=== PATIENT | female | born 1970 | race Caucasian/White ===

== ENCOUNTER 2021-09-13 16:50 | Observation (INO) | payer OTHER, SELFPAY ==
--- NOTE | ~2021-09-13 | CT_ITS ---
EXAMINATION: CTA chest PE abdomen pel DATE: 09/13/2021 21:09 INDICATION: Chest pain. Abdominal pain. Shortness of breath. TECHNIQUE: Computed tomography angiography (CTA) of the chest was performed with 100 mL Omnipaque-350 intravenous contrast timed to evaluate the pulmonary arteries. Coronal maximum intensity projection 3D-reconstructions were created by the technologist. Computed tomography (CT) of the abdomen and pelv is was performed with intravenous contrast. Automated exposure control and iterative reconstruction t echnique were employed. The dose-length product was 2207.69 mGy-cm. COMPARISON: None. FINDINGS: CTA chest: There is mild emphysema. There is mild atelectasis in the inferior lungs. There is a small left hemothorax. The heart size is normal. No pericardial effusion. There is no pulmonary embolus. T here are displaced fractures of left 9th and 10th ribs. There is mild chronic anterior wedging of mul tiple lower thoracic vertebral bodies. There is moderate thoracic spondylosis. CT abdomen and pelvis: The liver and spleen are normal. There are changes of cholecystectomy. The ambrosio creas, adrenal glands, and kidneys are normal. There is diverticulosis of the colon without evidence of diverticulitis. There are no dilated loops of bowel. The appendix is normal. There are no patholog ically enlarged lymph nodes. There is no free intraperitoneal fluid. There is severe lumbar spondylos is. IMPRESSION: 1. Acute displaced fractures of left 9th and 10th ribs. 2. Small left hemothorax. 3. Mild emphysema. Reviewed, dictated and finalized at location A. STER RECOVERY SPECIALIST
--- NOTE | ~2021-09-13 | XR_ITS ---
EXAMINATION: XR chest 1V portable DATE: 09/14/2021 08:18 INDICATION: Left-sided hemothorax TECHNIQUE: frontal view of the chest was obtained. COMPARISON: Chest radiograph and CT dated 09/13/2021 FINDINGS: Gradient of hazy airspace opacity in the left mid to lower lung zone densest at the left costophrenic angle consistent with a small posterior layering pleural effusion. No new airspace opacities, pulmon gurpreet edema, pneumothorax or right-sided pleural effusion. This appears more prominent than on the prio r radiograph but similar in extent when compared with the intervening chest CT. The cardiomediastinal silhouette is normal. The previous noted lateral left ninth and 10th rib fractures are not clearly v isualized in the current study. IMPRESSION: 1. No significant interval change since prior chest CT in a small left posteriorly layering pleural e ffusion. Reviewed, dictated and finalized at location A. ATE ADVISOR IMPRESSION: 1. No significant interval change since prior chest CT in a small left posterio rly layering pleural effusion.
--- NOTE | ~2021-09-13 | XR_ITS ---
EXAMINATION: XR chest 2V DATE: 09/13/2021 19:18 INDICATION: Shortness of breath. Left rib pain. TECHNIQUE: Frontal and lateral views of the chest were obtained. COMPARISON: None. FINDINGS: There are airspace opacities at the lung bases. There is a small left pleural effusion. No pneumothorax. The heart size is normal. There is a fracture of left ninth rib. There is mild anterior wedging of multiple lower thoracic vertebral bodies, likely chronic. IMPRESSION: 1. Fracture of left ninth rib. 2. Airspace opacities at the lung bases, likely atelectasis. 3. Small left pleural effusion. Reviewed, dictated and finalized at location A. CH LANGUAGE PATHOLOGIST
[2021-09-13 16:54] VITALS: BP 123/91; PULSE 95; RESP 14; TEMP 36.7; O2SAT 95
--- NOTE | 2021-09-13 19:01 | ECG_ITS ---
Measurements Intervals [place] Rate: 84 P: 62 MD: 128 QRS: 21 QRSD: 80 T: 66 QT: 360 QTc: 426 Interpretive Statements SINUS RHYTHM EARLY PRECORDIAL R/S TRANSITION BORDERLINE T WAVE ABNORMALITY- INF/LAT LEADS BORDERLINE ECG Electronically Signed On 09-13-2021 20:05:20 FENCE SETTER by Alexx Reyes D.O.
[2021-09-13 19:08] VITALS: BP 122/82; PULSE 84; RESP 20; O2SAT 94
[2021-09-13 19:24] LABS: Basophils Percent Auto 0.6 % (0.2-1.2); Eosinophils Absolute Auto 0.2 K/mm3 (0-0.3); Eosinophils Percent Auto 3.2 % (0-4.4); Hematocrit 42.4 % (37.0-47.0); Hemoglobin 13.5 g/dL (12.0-15.0); Immature Granulocyte Absolute 0.02 K/mm3 (0.00-0.031); Immature Granulocyte Percent A 0.3 % (0-0.5); Lymphocytes Absolute Auto 2.59 K/mm3 (0.9-3.2); Lymphocytes Percent Auto 37.5 % (18.3-44.2); Mean Corpuscular HGB Conc 31.8 g/dl (32-36); Mean Corpuscular Volume 100.5 fl (80-100); Mean Platelet Volume 10.4 fl (7.4-10.4); Monocytes Absolute Auto 0.4 K/mm3 (0.1-0.6); Monocytes Percent Auto 5.2 % (2.6-8.5); Neutrophils Absolute Auto 3.7 K/mm3 (1.3-6.7); Neutrophils Percent Auto 53.2 % (45.5-73.1); Platelet Count Result 226 k/mm3 (150-375); Red Blood Count 4.22 M/mm3 (4.2-5.4); Red Cell Distribution Width 13.7 % (11.5-14.5); White Blood Count 6.9 K/mm3 (4.5-10.0)
[2021-09-13 19:32] LABS: Alanine Aminotransferase 15 U/L (4-35); Albumin Level 4.2 g/dL (3.5-5.1); Alkaline Phosphatase 111 U/L (38-126); Anion Gap 8 mmol/L (8-16); Aspartate Amino Transferase 24 U/L (14-36); Bilirubin,Total 0.5 mg/dL (0.2-1.3); Blood Urea Nitrogen 10 mg/dL (7-17); Carbon Dioxide 29 mmol/L (22-30); Chloride 102 mmol/L (98-107); Estimated CRCL calculation 81 ml/min; Estimated Glomerular Filt Rate > 60; Glucose 123 mg/dL (65-110); Sodium 139 mmol/L (137-145)
--- NOTE | 2021-09-13 20:07 | ED.GENADULT ---
HPI - General Adult General Chief complaint: Abdominal Pain Stated complaint: abd pain/diff breathing Time Seen by Provider: 09/13/21 18:51 Source: patient and RN notes reviewed History of Present Illness HPI narrative: Patient is a 51 y/o female complaining of left side abdominal pain starting 2 days ago. She describes her pain as sharp and rates it as 9/10. She feels like there is something moving inside. She is concerned about possible ruptured spleen. She also has some chest pain and SOB. Related Data Allergies Allergy/AdvReac Type Severity Reaction Status Date / Time codeine AdvReac Abdominal Verified 09/13/21 22:07 Pain Sulfa (Sulfonamide AdvReac Abdominal Verified 09/13/21 22:06 Antibiotics) Pain Review of Systems Constitutional: Constitutional: Denies chills, Denies fever(s), Denies headache(s) and Denies weakness Eyes: Eyes: Denies blurry vision ENT: Denies headache(s) and Denies neck pain Cardiovascular: Cardiovascular: Reports chest pain and Reports dyspnea Respiratory: Respiratory: Denies cough and Reports dyspnea Gastrointestinal: Gastrointestinal: Reports abdominal pain, Denies diarrhea, Denies nausea and Denies vomiting Genitourinary: Genitourinary: Denies hematuria and Denies dysuria Musculoskeletal: Musculoskeletal: Denies back pain and Denies neck pain Neurologic: Denies headache(s) and Denies weakness Exam Const: General: no acute distress and well developed Orientation/consciousness: oriented to person, oriented to place, oriented to time and patient oriented x3 HENMT: Head: normocephalic Ears: external ears normal General nose exam: Normal external nose present Eyes: General: appearance normal, both eyes and all related structures Conjunctivae: conjunctivae normal Neck: Neck: normal visual inspection and full ROM Chest: Chest palpation & inspection: normal inspection of the chest and no tenderness Resp: Effort & Inspection: normal respiratory effort Auscultation: clear to auscultation bilaterally Cardio: Rate: regular rate Rhythm: regular rhythm GI: GI Palp: No abdominal tenderness and Yes Soft to palpation Skin: General skin exam: normal color and turgor normal Neuro: General: oriented to person, oriented to place, oriented to time and patient oriented x3 Cognition (Neuro): normal cognition Extrem: General: normal to inspection, full ROM and no pedal edema Psych: Appearance: grossly normal Mental Status: mental status grossly normal Affect: normal affect Course Consultations Consultation #1: Discussed with Dr. Osullivan, who agrees to admit. Date: 09/13/21 Time: 22:53 Vital Signs Vital signs: Vital Signs Temperature 36.7 C 09/13/21 16:54 Pulse Rate 95 09/13/21 16:54 Respiratory Rate 14 09/13/21 16:54 Blood Pressure 123/91 H 09/13/21 16:54 Pulse Oximetry 95 09/13/21 16:54 Temperature 36.7 C 09/13/21 16:54 Pulse Rate 82 09/13/21 23:32 Respiratory Rate 18 09/13/21 23:32 Blood Pressure 100/64 09/13/21 23:32 Pulse Oximetry 95 09/13/21 23:32 Medical Decision Making Vital Signs Vital Signs: Vital Signs Temperature 36.7 C 09/13/21 16:54 Pulse Rate 95 09/13/21 16:54 Respiratory Rate 14 09/13/21 16:54 Blood Pressure 123/91 H 09/13/21 16:54 Pulse Oximetry 95 09/13/21 16:54 Temperature 36.7 C 09/13/21 16:54 Pulse Rate 82 09/13/21 23:32 Respiratory Rate 18 09/13/21 23:32 Blood Pressure 100/64 09/13/21 23:32 Pulse Oximetry 95 09/13/21 23:32 Lab Data Result diagrams: 09/13/21 19:06 09/13/21 19:06 Labs: Lab Results 09/13/21 09/13/21 09/13/21 Range/Units 19:06 19:06 20:06 WBC 6.9 (4.5-10.0) K/mm3 RBC 4.22 (4.2-5.4) M/mm3 Hgb 13.5 (12.0-15.0) g/dL Hct 42.4 (37.0-47.0) % MCV 100.5 H (80-100) fl MCH 32.0 (26-34) pg MCHC 31.8 L (32-36) g/dl RDW 13.7 (11.5-14.5) % Plt Count 226 (150-375) k/mm3 MPV 10.4 (
[2021-09-13 20:28] LABS: D Dimer 3.25 ug/mL (<0.48)
[2021-09-13 20:33] LABS: Troponin I < 0.012 ng/mL (0.000-0.034)
[2021-09-13 22:29] LABS: Troponin I < 0.012 ng/mL (0.000-0.034)
[2021-09-13] MEDS: KETOROLAC 30 MG/ML VIAL (*BKC) IV PUSH (23:15)
[2021-09-13 23:32] VITALS: BP 100/64; PULSE 82; RESP 18; O2SAT 95
[2021-09-14] VITALS (7 sets, daily range): BP systolic 107–129; BP diastolic 48–84; PULSE 68–94; RESP 16–20; TEMP 36.2–36.6; O2SAT 91–97
[2021-09-14 01:45] LABS: SARS-CoV-2 RNA PCR Negative
--- NOTE | 2021-09-14 03:17 | ADMGEN ---
This patient, Rin Dickerson, was admitted to [facility]. Patient oriented to hospital policies and general routines including ID bracelet, bed and alarms, visiting hours, pain management, procedures, bathroom and other care routines, personal items, smoking policy, room service/diet, and visiting hours. Information on how to activate the Rapid Response Team has been discussed. Patient is encouraged to report perceived risks to care and to ask questions if they do not understand what they are told or what they should do.
[2021-09-14 04:10] LABS: Troponin I < 0.012 ng/mL (0.000-0.034)
--- NOTE | 2021-09-14 11:12 | PM.IMHP ---
H&P: HPI History of Present Illness Date/Time: 09/14/21 11:12 Chief Complaint: Left rib pain, shortness of breath Narrative: This is a 51-year-old obese female with a history of ashtma, hypertension, and tobacco abuse, who presented to the ER with complaints of left lateral chest/rib pain and shortness of breath. She reports having intermittent episodes of different sharp pains in her left lateral chest/rib area, epigastric area, and LUQ over the past 5 months. These are all short episodes and she has been seen at [facility] and her PCP for these episodes, but no significant findings. She reports that late last year, they did see a left-sided rib fracture in April, but that has since resolved. Now about 1 week ago, she had reached for something up high in her house and felt a popping sensation in her left lateral chest and lower rib area. She had associated pain as well. She reports that two nights ago she slept on her left side and upon waking, she noticed a new onset of shortness of breath. She called her PCP and they scheduled her for an appointment yesterday. She called them yesterday prior to arrival and mentioned the shortness of breath, and they suggested she be evaluated in the ER instead. In the ER, she had a chest x-ray that showed a fracture of left ninth rib, airspace opacities at the lung bases, likely atelectasis, and small left pleural effusion. CTA chest/abdomen/pelvis that showed acute displaced fractures of left 9th and 10th ribs, small left hemothorax, and mild emphysema. Our service was consulted for the findings of the left small hemothorax. She was admitted for observation and was initially on 2L NC O2 early this morning. She is now seen in the pre-op area as an overflow patient. She reports feeling great today with only very minimal pain with certain movements in her left lower lateral rib area. She reports her shortness of breath actually had improved prior to even being seen in the ER. She denies any shortness of breath this morning. She denies any other pain or discomfort. She is now taken off oxygen and is stable on room air per nursing. No other complaints at this time. She is also a daily smoker. She denies having a history of spontaneous pneumothorax in the past. Review of Systems Review of Systems: All systems reviewed & are unremarkable except as noted in HPI and below Constitutional: Constitutional: Reports as per HPI, Denies chills, Denies fatigue and Denies fever(s) Eyes: Eyes: Reports no additional eye complaints ENT: Reports system reviewed and no additional complaints, except as documented and Reports Normal hearing present Cardiovascular: Cardiovascular: Reports no additional cardiovascular complaints, Denies chest pain and Denies leg edema Respiratory: Respiratory: Reports no additional respiratory complaints, Denies cough and Reports dyspnea Gastrointestinal: Gastrointestinal: Reports as per HPI, Reports no additional gastrointestinal complaints, Denies abdominal pain, Denies bloating, Denies change in bowel habits, Denies diarrhea, Denies nausea and Denies vomiting Genitourinary: Genitourinary: Denies hematuria and Denies dysuria Musculoskeletal: Musculoskeletal: Denies abnormal gait, Denies deformity, Denies joint swelling, Denies numbness and Denies tingling Integumentary/Breasts: Skin/Breast: Denies wounds and Denies jaundice Neurologic: Reports system reviewed and no additional complaints, except as documented, Denies dizziness, Denies focal weakness, Denies numbness and Denies tingling Psychiatric: Psychiatric: Denies anxiety and Reports other (takes prazosin for PTSD) [facility] Past Medical History Medical History Allergies Asthma Hypertension PTSD (post-traumatic stress disorder) Tobacco abuse disorder Surgical History Surgical History History of cholecystectomy History of shoulder surge
[2021-09-14] MEDS: atenoloL 50 MG TABLET PO (13:56)
[2021-09-14] MEDS: ACETAMINOPHEN 325 MG TABLET 650 MG PO (13:59)
--- NOTE | 2021-09-14 15:40 | PM.DS ---
DS: Admitting Diagnosis Discharge Date 09/14/21 Admitting Diagnosis Left hemothorax Left rib fractures Tobacco abuse Hypertension Asthma Obesity DS: Discharge Diagnosis Discharge Diagnosis (1) Left rib fracture: Qualifiers: Encounter type: initial encounter Fracture type: closed Rib fracture type: multiple ribs Qualified Code(s): S22.42XA - Multiple fractures of ribs, left side, initial encounter for closed fracture Code(s): S22.32XA - Fracture of one rib, left side, initial encounter for closed fracture Status: Acute (2) Hemothorax on left: Code(s): J94.2 - Hemothorax Status: Acute (3) Hypertension: Code(s): I10 - Essential (primary) hypertension Status: Acute (4) Tobacco abuse disorder: Code(s): Z72.0 - Tobacco use Status: Acute (5) Obesity (BMI 30-39.9): Code(s): E66.9 - Obesity, unspecified Status: Acute DS: Summary Hospital Course Reason for hospitalization: This is a 51-year-old obese female with a history of asthma, hypertension, and tobacco abuse, who presented to the ER with complaints of left lateral chest/rib pain and shortness of breath. About 1 week ago, she had reached for something up high in her house and felt a popping sensation in her left lateral chest and lower rib area. She had associated pain as well. She reports that two nights ago she slept on her left side and upon waking, she noticed a new onset of shortness of breath. She came to the ER for evaluation. Chest x-ray showed a fracture of left ninth rib, airspace opacities at the lung bases, likely atelectasis, and small left pleural effusion. CTA chest/abdomen/pelvis that showed acute displaced fractures of left 9th and 10th ribs, small left hemothorax, and mild emphysema. Our service was consulted for the findings of the left small hemothorax. She was admitted for observation. Hospital Course: The patient was admitted and monitored. Repeat chest x-ray this morning was unchanged. Patient is stable on room air. She is only having minimal pain that is controlled with Tylenol. Dr. Osullivan has evaluated her this afternoon and she is stable for discharge. We have recommended she follow-up with her PCP in 2 weeks for repeat imaging and further work-up. The hemothorax is likely a result of the rib fractures, but it is unclear why she continues to have rib fractures without trauma. Will need f/u with PCP for further work-up. Time spent discussing smoking cessation with patient: more than 10 minutes Status at Discharge Functional status at discharge: independent ambulation Overall status at discharge: patient is progressing back to baseline Time Spent with Patient Time attestation: Total time spent providing and/or coordinating discharge services: Time spent: Greater than 30 minutes Exam Resp: Effort & Inspection: normal respiratory effort and no respiratory distress Auscultation: clear to auscultation bilaterally Cardio: Rate: regular rate Rhythm: regular rhythm DS: Data Data Completed and Pending Labs on day of discharge: Labs from last 24 hours 09/14/21 09/13/21 09/13/21 03:35 23:32 21:55 WBC RBC Hgb Hct MCV MCH MCHC RDW Plt Count MPV Immature Gran % (Auto) Neut % (Auto) Lymph % (Auto) [place] % (Auto) Eos % (Auto) Baso % (Auto) Lymph # (Auto) [place] # (Auto) Eos # (Auto) Baso # (Auto) Abs Immat Gran (auto) Absolute Neuts (auto) Absolute Nucleated RBC Nucleated RBC % D-Dimer Sodium Potassium Chloride Carbon Dioxide Anion Gap BUN Creatinine Estim Creat Clear Calc Estimated GFR Glucose Calcium Total Bilirubin AST ALT Alkaline Phosphatase Troponin I < 0.012 < 0.012 Total Protein Albumin SARS-CoV-2 RNA (RT-PCR) Negative 09/13/21 09/13/21 09/13/21 20:06 20:06 19:06 WBC RBC Hgb Hct MCV MCH MCHC
== END 2021-09-14 16:20 | disposition home or self-care (01) ==
LOC: ANHED 23:10 → ANHSUROVER 09-14 02:34
PROVIDERS: Admitting Provider Surgery; Emergency Provider Emergency Medicine; PCP Internal Medicine; Visit Provider Surgery
DX: S27.1XXA Traumatic hemothorax, initial encounter (principal); S22.42XA Multiple fractures of ribs, left side, initial encounter for closed fracture; X58.XXXA Exposure to other specified factors, initial encounter; R06.02 Shortness of breath; I10 Essential (primary) hypertension; J45.909 Unspecified asthma, uncomplicated; F43.10 Post-traumatic stress disorder, unspecified; F17.210 Nicotine dependence, cigarettes, uncomplicated; Z79.51 Long term (current) use of inhaled steroids; E66.9 Obesity, unspecified; Z68.34 Body mass index [BMI] 34.0-34.9, adult; Z20.822 Contact with and (suspected) exposure to COVID-19
CPT/HCPCS: 36415; 71045; 71046; 71275; 74177; 80053; 84484; 85025; 85380; 93005; 96374; 99285; A9270; C9803; G0378; G0379; J1885; Q9967; U0003; U0005

== ENCOUNTER 2021-09-24 02:40 | Inpatient (IN) | payer OTHER, SELFPAY ==
[2021-09-24] VITALS (38 sets, daily range): BP systolic 80–118; BP diastolic 47–106; PULSE 63–86; RESP 12–33; TEMP 36–36.9; O2SAT 88–99; BMI 37.2
--- NOTE | ~2021-09-24 | XR_ITS ---
EXAMINATION: XR chest 2V DATE: 09/24/2021 03:11 INDICATION: Cough and shortness of breath TECHNIQUE: frontal and lateral views of the chest were obtained. COMPARISON: Chest radiograph dated 09/14/2021 FINDINGS: Opacities in the left lower lung zone consistent with small left pleural effusion and associated basi lar atelectasis and/or pneumonia. Mild streaky atelectasis at the right lung base. No pulmonary edema , pneumothorax or right pleural effusion. The cardiomediastinal silhouette is normal. Mild thoracic s pondylosis with chronic mild anterior wedging with couple lower thoracic vertebral bodies. IMPRESSION: 1. Small left pleural effusion with atelectasis and/or pneumonia in the left lower lung zones. Reviewed, dictated and finalized at location A. HER OPERATOR IMPRESSION: 1. Small left pleural effusion with atelectasis and/or pneumonia in the left lo wer lung zones.
--- NOTE | ~2021-09-24 | CT_ITS ---
EXAMINATION: CT chest abdomen pelvis wo con DATE: 09/25/2021 08:05 CORE DRIER INDICATION: Recent hemothorax. Dropped hemoglobin. Shortness of breath. TECHNIQUE: Computed tomography (CT) of the chest, abdomen, and pelvis was performed without intraveno us contrast. The dose-length product was 1889.28 mGy-cm. Automated exposure control and iterative rec onstruction technique were employed. COMPARISON: CT dated 09/13/2021 FINDINGS: CHEST CT: Significant enlargement of large left hemothorax. There is underlying compressive atelectasis. Heart size is normal. There is mediastinal shift to the right. No endobronchial lesions. Displaced left alfie th and 10th rib fractures reidentified. Moderate thoracic and lumbar spondylosis. Mild superior endpl ate compression deformity of L4, likely chronic. ABDOMEN/PELVIS CT: Status post cholecystectomy. The liver, spleen, pancreas, adrenal glands and kidneys are unremarkable . Small fat-containing ventral abdominal wall hernia. No abnormal pelvic masses or fluid collections. Nonobstructive bowel gas pattern. Colonic diverticulosis without diverticulitis. IMPRESSION: 1. Significant enlargement of large left hemothorax. 2: Subacute displaced left ninth and 10th rib fractures. Reviewed, dictated and finalized at location A. DRIER
--- NOTE | 2021-09-24 02:53 | ECG_ITS ---
Measurements Intervals [place] Rate: 71 P: 44 [place]: 123 QRS: 3 QRSD: 86 T: 29 QT: 403 QTc: 440 Interpretive Statements SINUS RHYTHM BASELINE ARTIFACT- I, II, III, AVR, AVF, V2-V6 NORMAL ECG Electronically Signed On 09-24-2021 8:17:21 INFRASTRUCTURE PROJECT MANAGER by Alexx Reyes D.O.
--- NOTE | 2021-09-24 02:59 | ED.SOB ---
HPI - SOB/Dyspnea General Chief Complaint: Shortness of Breath/Dyspnea Stated Complaint: SOB WITH COUGH, N/V/EMESIS Time Seen by Provider: 09/24/21 02:43 History of Present Illness HPI Narrative: Patient is a 51-year-old female who presents to the ER with shortness of breath and weakness. Patient was admitted to the hospital 09/14/2021. She had left-sided rib fractures of 9 and 10 that were displaced. She had a pneumothorax. She was observed by surgery and discharged home. She followed up with her PCP today. Reports that she was leaving his office she felt like she is having some central chest discomfort and some shortness of breath. That is persisted since leaving. She is concerned she is developing infection. She has been having some cough. No wheezing. Denies fevers or chills or sweats. Reports she is feeling fatigued with exertion as well as short of breath. She also reports that she has developed some nausea and vomiting on the way to the ER and received antiemetics by EMS which did help. Denies any new trauma but reports she did have some coughing today that did cause some pain on her left side and in the back of her neck. That pain is improved and she has had some central chest discomfort. Reports she only use her incentive spirometry 1 time today and that it was reaching readings that were typical for her. Related Data Home Medications Medication Instructions Recorded Confirmed albuterol sulfate 2 puff INHALATION PRN PRN 09/14/21 09/24/21 atenolol 50 mg PO DAILY 09/14/21 09/24/21 fluticasone propion-salmeterol 1 inh INHALATION BID PRN 09/14/21 09/24/21 [Valerie Winslowub] montelukast 10 mg PO DAILY PRN 09/14/21 09/24/21 naproxen 500 mg PO PRN 09/14/21 09/24/21 prazosin 1 mg PO HS 09/14/21 09/24/21 venlafaxine 75 mg PO DAILY 09/14/21 09/24/21 venlafaxine 150 mg PO HS 09/14/21 09/24/21 Allergies Allergy/AdvReac Type Severity Reaction Status Date / Time latex AdvReac Mild Rash Verified 09/14/21 05:50 ciprofloxacin [From Cipro] AdvReac Rash Verified 09/24/21 06:29 codeine AdvReac Abdominal Verified 09/13/21 22:07 Pain Sulfa (Sulfonamide AdvReac Abdominal Verified 09/13/21 22:06 Antibiotics) Pain Review of Systems Review of Systems: All systems reviewed & are unremarkable except as noted in HPI and below Constitutional: Constitutional: Denies chills, Reports fatigue, Denies fever(s) and Reports weakness ENT: Denies nasal congestion and Denies sore throat Cardiovascular: Cardiovascular: Reports chest pain, Denies rapid heart rate and Denies radiating jaw, neck or arm pain Respiratory: Respiratory: Reports cough, Reports dyspnea and Denies wheezing Gastrointestinal: Gastrointestinal: Denies abdominal pain, Denies diarrhea, Reports nausea and Reports vomiting Genitourinary: Genitourinary: Denies hematuria, Denies dysuria and Denies flank pain Musculoskeletal: Musculoskeletal: Reports back pain PMFSH Past Medical History Medical History Allergies Asthma Hypertension PTSD (post-traumatic stress disorder) Tobacco abuse disorder Surgical History Surgical History History of cholecystectomy History of shoulder surgery Family History Family History (Updated 09/24/21 @ 06:50 by Ingrid Fermin RN) Father Liver failure Mother Rheumatic fever Social History Social History Smoking packs per day: 0.75 Smoking cigarettes per day: 15.0 Years smoked: 35 Smoking pack-years: 26.25 Smoking status: Current some day smoker Tobacco type: cigarettes Second hand tobacco smoke exposure: No Alcohol intake: current Substance use: never Substance use type: does not use Spiritual care concerns: No Exam Narrative: GENERAL: Well-appearing, obese, and in no acute distress. HEAD: Normocephalic, atraumatic. EYES: PERR
[2021-09-24] MEDS: SODIUM CHLORIDE 0.9% IV 1,000 ML 999 ML IV CONT (03:00)
[2021-09-24 03:24] LABS: Basophils Absolute Auto 0.1 K/mm3 (0.0-0.1); Basophils Percent Auto 0.4 % (0.2-1.2); Eosinophils Absolute Auto 0.1 K/mm3 (0-0.3); Eosinophils Percent Auto 0.5 % (0-4.4); Hematocrit 34.6 % (37.0-47.0); Hemoglobin 11.1 g/dL (12.0-15.0); Immature Granulocyte Absolute 0.07 K/mm3 (0.00-0.031); Immature Granulocyte Percent A 0.6 % (0-0.5); Lymphocytes Percent Auto 16.4 % (18.3-44.2); Mean Corpuscular HGB Conc 32.1 g/dl (32-36); Mean Corpuscular Hemoglobin 32.5 pg (26-34); Mean Corpuscular Volume 101.2 fl (80-100); Mean Platelet Volume 10.2 fl (7.4-10.4); Monocytes Absolute Auto 0.8 K/mm3 (0.1-0.6); Monocytes Percent Auto 6.9 % (2.6-8.5); Neutrophils Absolute Auto 9.2 K/mm3 (1.3-6.7); Neutrophils Percent Auto 75.2 % (45.5-73.1); Platelet Count Result 294 k/mm3 (150-375); Red Blood Count 3.42 M/mm3 (4.2-5.4); Red Cell Distribution Width 14.1 % (11.5-14.5); White Blood Count 12.2 K/mm3 (4.5-10.0)
[2021-09-24 03:48] LABS: INR 1.1; Prothrombin Time 13.4 Seconds (11.1-14.7)
[2021-09-24 03:49] LABS: Partial Thromboplastin Time 29.9 SECONDS (22.3-36.8)
[2021-09-24 03:59] LABS: Alanine Aminotransferase 16 U/L (4-35); Albumin Level 3.8 g/dL (3.5-5.1); Alkaline Phosphatase 102 U/L (38-126); Anion Gap 6 mmol/L (8-16); Aspartate Amino Transferase 41 U/L (14-36); Bilirubin,Total 0.6 mg/dL (0.2-1.3); Blood Urea Nitrogen 14 mg/dL (7-17); Calcium 8.8 mg/dL (8.4-10.2); Carbon Dioxide 28 mmol/L (22-30); Chloride 100 mmol/L (98-107); Estimated CRCL calculation 42 ml/min; Estimated Glomerular Filt Rate 30; Glucose 141 mg/dL (65-110); Lipase 37 U/L (23-300); Potassium 5.2 mmol/L (3.4-5.0); Sodium 134 mmol/L (137-145)
[2021-09-24 04:11] LABS: NT Pro B Type Natriuretic Pept 156 pg/mL (5-100); Troponin I < 0.012 ng/mL (0.000-0.034)
[2021-09-24 04:57] LABS: SARS-CoV-2 RNA PCR Negative
[2021-09-24] MEDS: LACTATED RINGERS 1,000 ML 125 ML IV CONT ×3 (06:02→23:50)
[2021-09-24] MEDS: ONDANSETRON INJ 4 MG/2 ML VIAL IV PUSH ×2 (06:07→23:58)
--- NOTE | 2021-09-24 06:26 | ADMGEN ---
This patient, Rin Dickerson, was admitted to 2 Medical Room 248-01. Patient/family oriented to hospital policies and general routines including ID bracelet, bed and alarms, visiting hours, pain management, procedures, bathroom and other care routines, personal items, smoking policy, room service/diet, and visiting hours. Information on how to activate the Rapid Response Team has been discussed. Patient/Family are encouraged to report perceived risks to care and to ask questions if they do not understand what they are told or what they should do.
[2021-09-24 06:39] LABS: Troponin I < 0.012 ng/mL (0.000-0.034)
[2021-09-24] MEDS: atenoloL 50 MG TABLET PO (09:25)
[2021-09-24] MEDS: LIDOCAINE 5% PATCH 2 PATCH TRANSDERM (09:25)
[2021-09-24] MEDS: MONTELUKAST SODIUM 10 MG TABLET PO (09:25)
[2021-09-24] MEDS: VENLAFAXINE HCL 75 MG TABLET BY MOUTH (09:25)
[2021-09-24] MEDS: NAPROXEN 500 MG TABLET PO ×2 (09:25→20:28)
[2021-09-24 09:30] LABS: Troponin I < 0.012 ng/mL (0.000-0.034)
--- NOTE | 2021-09-24 12:11 | PM.IMHP ---
H&P: HPI History of Present Illness Date/Time: 09/24/21 12:11 ED-HPI Narrative: Patient is a 51-year-old female who presents to the ER with shortness of breath and weakness. Patient was admitted to the hospital 09/14/2021. She had left-sided rib fractures of 9 and 10 that were displaced. She had a pneumothorax. She was observed by surgery and discharged home. She followed up with her PCP today. Reports that she was leaving his office she felt like she is having some central chest discomfort and some shortness of breath. That is persisted since leaving. She is concerned she is developing infection. She has been having some cough. No wheezing. Denies fevers or chills or sweats. Reports she is feeling fatigued with exertion as well as short of breath. She also reports that she has developed some nausea and vomiting on the way to the ER and received antiemetics by EMS which did help. Denies any new trauma but reports she did have some coughing today that did cause some pain on her left side and in the back of her neck. That pain is improved and she has had some central chest discomfort. Reports she only use her incentive spirometry 1 time today and that it was reaching readings that were typical for her. Patient continued to complain of left ribs pain and shortness of breath, applied to Lidoderm patches that has improved some pain, will give the patient DuoNeb, chest x-ray is pending but appears to have pleural effusion on the left side may benefit from thoracentesis will continue to monitor, also risk for infection patient is being treated with ceftriaxone and azithromycin, will have PT OT evaluate the the patient, will keep the patient NPO on Sunday night for possible thoracentesis on Sunday. patient is admitted as observation status. Chief Complaint: shortness of breath Review of Systems Review of Systems: All systems reviewed & are unremarkable except as noted in HPI and below PMFSH Past Medical History Medical History Allergies Asthma Hypertension PTSD (post-traumatic stress disorder) Tobacco abuse disorder Surgical History Surgical History History of cholecystectomy History of shoulder surgery Family History Family History (Updated 09/24/21 @ 06:50 by Ingrid Fermin RN) Father Liver failure Mother Rheumatic fever Social History Social History Smoking packs per day: 0.75 Smoking cigarettes per day: 15.0 Years smoked: 35 Smoking pack-years: 26.25 Smoking status: Current some day smoker Tobacco type: cigarettes Second hand tobacco smoke exposure: No Alcohol intake: current Substance use: never Substance use type: does not use Spiritual care concerns: No Meds Home Medications and Allergies Home Medications Medication Instructions Recorded Confirmed Type albuterol sulfate 2 puff INHALATION PRN PRN 09/14/21 09/24/21 History atenolol 50 mg PO DAILY 09/14/21 09/24/21 History fluticasone propion-salmeterol 1 inh INHALATION BID PRN 09/14/21 09/24/21 History [Wixela Inhub] montelukast 10 mg PO DAILY PRN 09/14/21 09/24/21 History naproxen 500 mg PO PRN 09/14/21 09/24/21 History prazosin 1 mg PO HS 09/14/21 09/24/21 History venlafaxine 75 mg PO DAILY 09/14/21 09/24/21 History venlafaxine 150 mg PO HS 09/14/21 09/24/21 History Allergies Allergy/AdvReac Type Severity Reaction Status Date / Time latex AdvReac Mild Rash Verified 09/14/21 05:50 ciprofloxacin [From Cipro] AdvReac Rash Verified 09/24/21 06:29 codeine AdvReac Abdominal Verified 09/13/21 22:07 Pain Sulfa (Sulfonamide AdvReac Abdominal Verified 09/13/21 22:06 Antibiotics) Pain Vital Signs Vital Signs - 24 hr 09/24/21 02:45 09/24/21 03:00 09/24/21 03:16 Temperature 96.8 F L Pulse Rate 75 74 Respiratory Rate 16 33 H Blood Pres
[2021-09-24] MEDS: IPRATROPIUM BR 0.02% INH SOLN 0.5 MG/2.5 ML VIAL INHALATION ×2 (15:12→20:20)
[2021-09-24] MEDS: ALBUTEROL SULFATE NEB 2.5 MG/0.5 ML INH INHALATION ×2 (15:12→20:20)
[2021-09-24] MEDS: VENLAFAXINE HCL 75 MG TABLET 150 MG PO (20:27)
[2021-09-24] MEDS: PRAZOSIN HCL 1 MG CAPSULE PO (20:27)
[2021-09-25] VITALS (20 sets, daily range): BP systolic 88–123; BP diastolic 37–66; PULSE 65–108; RESP 18–22; TEMP 36.1–36.8; O2SAT 91–93
[2021-09-25] MEDS: ALBUTEROL SULFATE NEB 2.5 MG/0.5 ML INH INHALATION ×3 (00:10→08:33)
[2021-09-25] MEDS: IPRATROPIUM BR 0.02% INH SOLN 0.5 MG/2.5 ML VIAL INHALATION ×3 (00:10→08:33)
[2021-09-25 06:07] LABS: Anion Gap 2 mmol/L (8-16); Blood Urea Nitrogen 18 mg/dL (7-17); Calcium 7.9 mg/dL (8.4-10.2); Carbon Dioxide 32 mmol/L (22-30); Chloride 97 mmol/L (98-107); Estimated CRCL calculation 58 ml/min; Estimated Glomerular Filt Rate 43; Glucose 109 mg/dL (65-110); Potassium 4.3 mmol/L (3.4-5.0); Sodium 131 mmol/L (137-145)
[2021-09-25 06:52] LABS: Hemoglobin 7.3 g/dL (12.0-15.0); Mean Corpuscular HGB Conc 31.7 g/dl (32-36); Mean Corpuscular Hemoglobin 32.3 pg (26-34); Mean Corpuscular Volume 101.8 fl (80-100); Mean Platelet Volume 9.9 fl (7.4-10.4); Platelet Count Result 169 k/mm3 (150-375); Red Blood Count 2.26 M/mm3 (4.2-5.4); White Blood Count 6.1 K/mm3 (4.5-10.0)
[2021-09-25] MEDS: VENLAFAXINE HCL 75 MG TABLET BY MOUTH (08:02)
[2021-09-25] MEDS: LACTATED RINGERS 1,000 ML 125 ML IV CONT (08:03)
--- NOTE | 2021-09-25 09:28 | PM.TDS ---
Transfer Discharge Sum: Prov Provider Date of admission: 09/24/21 07:51 Primary care physician: Rick Segura, Admitting clinician: Vince Heck MD DS: Admitting Diagnosis Discharge Date 09/25/2021 Admitting Diagnosis Shortness of breath DS: Discharge Diagnosis Discharge Diagnosis (1) Pleural effusion: Code(s): J90 - Pleural effusion, not elsewhere classified Status: Acute Assessment and Plan: Patient continued to complain of left ribs pain and shortness of breath, applied to Lidoderm patches that has improved some pain, will give the patient DuoNeb, chest x-ray is pending but appears to have pleural effusion on the left side may benefit from thoracentesis will continue to monitor, also risk for infection patient is being treated with ceftriaxone and azithromycin, will have PT OT evaluate the the patient, will keep the patient NPO on Sunday night for possible thoracentesis on Sunday. (2) Acute kidney injury: Code(s): N17.9 - Acute kidney failure, unspecified Status: Acute Assessment and Plan: patient with acute on chronic kidney disease most likely secondary to poor p.o. intake and dehydration will gently hydrate the patient and monitor (3) Hypoxia: Code(s): R09.02 - Hypoxemia Status: Acute Assessment and Plan: most likely secondary to rib fractures hypoventilation, will give the patient DuoNeb and apply Lidoderm patch, (4) Hypertension: Code(s): I10 - Essential (primary) hypertension Status: Acute Assessment and Plan: will continue home regimen and monitor Transfer Discharge Sum: Med Medications Active and Home Medications: Home Medications albuterol sulfate 2 puff INHALATION PRN PRN 09/14/21 [History Confirmed 09/24/21] atenolol 50 mg PO DAILY 09/14/21 [History Confirmed 09/24/21] fluticasone propion-salmeterol [Wixela Inhub] 1 inh INHALATION BID PRN 09/14/21 [History Confirmed 09/24/21] montelukast 10 mg PO DAILY PRN 09/14/21 [History Confirmed 09/24/21] naproxen 500 mg PO PRN 09/14/21 [History Confirmed 09/24/21] prazosin 1 mg PO HS 09/14/21 [History Confirmed 09/24/21] venlafaxine 75 mg PO DAILY 09/14/21 [History Confirmed 09/24/21] venlafaxine 150 mg PO HS 09/14/21 [History Confirmed 09/24/21] Active Medications Hydrocodone Bitart/Acetaminophen (Hydrocodone/Acetaminophen (*Crx) 5-325 Mg Tablet) 1 tab PO Q4H PRN PRN Reason: Pain Rated 4-6 Albuterol (Albuterol Sulfate (*Sp) Aerosol 1 Puff) 2 puff INHALATION PRN PRN PRN Reason: Shortness Of Breath Or Wheezing Albuterol (Albuterol Sulfate Neb 2.5 Mg/0.5 Ml Inh) 2.5 mg INHALATION Q4HRT [facility] Last Admin: 09/25/21 08:33 Dose: 2.5 mg Documented by: Atenolol (Atenolol 50 Mg Tablet) 50 mg PO DAILY [facility] Last Admin: 09/24/21 09:25 Dose: 50 mg Documented by: Lactated Ringer's (Lr - Lactated Ringers Iv) 1,000 mls @ 125 mls/hr IV CONT .Q8H [facility] Last Admin: 09/25/21 08:03 Dose: 125 mls/hr Documented by: Ceftriaxone Sodium/Dextrose (Rocephin 1 Gm/D5w 50 Ml) 1 gm in 50 mls @ 100 mls/hr IVPB Q24H [facility] Last Infusion: 09/25/21 06:04 Dose: Infused Documented by: Azithromycin (Zithromax) 500 mg in 250 mls @ 250 mls/hr IVPB Q24H [facility] Last Infusion: 09/25/21 06:39 Dose: Infused Documented by: Sodium Chloride (Normal Saline Iv) 250 mls @ 30 mls/hr IV CONT .Q8H20M [facility] Stop: 09/25/21 15:17 Ipratropium [place] (Ipratropium Br 0.02% Inh Soln 0.5 Mg/2.5 Ml Vial) 0.5 mg INHALATION Q4HRT [facility] Last Admin: 09/25/21 08:33 Dose: 0.5 mg Documented by: Lidocaine (Lidocaine 5% Patch) 2 patch TRANSDERM DAILY [facility] Last Admin: 09/25/21 08:03 Dose: Not Given Documented by: Miscellaneous Information (Lidocaine Patches- Site Of Application Needed Please) 1 each XX CLARIFY [facility] Stop: 10/24/21 00:00 Last Admin: 09/25/21 08:00 Dose: Not Given Documented by: Montelukast Sodium (Montelukast Sodium 10 Mg Tablet) 10 mg PO DAILY PRN PRN Reason: allergy symptoms Last Admin: 09/06
[2021-09-25 10:52] LABS: SARS-CoV-2 RNA PCR Negative
== END 2021-09-25 14:35 | disposition short-term general hospital (02) | DRG 143 ==
LOC: ANHED 02:49 → ANH2MED 05:50
PROVIDERS: Admitting Provider Internal Medicine; Emergency Provider Emergency Medicine; PCP Internal Medicine; Visit Provider Family Medicine
DX: J94.2 Hemothorax (principal); J90 Pleural effusion, not elsewhere classified; E86.0 Dehydration; Z20.822 Contact with and (suspected) exposure to COVID-19; F17.210 Nicotine dependence, cigarettes, uncomplicated; J45.909 Unspecified asthma, uncomplicated; I12.9 Hypertensive chronic kidney disease with stage 1 through stage 4 chronic kidney disease, or unspecified chronic kidney disease; N18.9 Chronic kidney disease, unspecified; F43.10 Post-traumatic stress disorder, unspecified; S22.42XD Multiple fractures of ribs, left side, subsequent encounter for fracture with routine healing; X58.XXXD Exposure to other specified factors, subsequent encounter; R09.02 Hypoxemia; N17.9 Acute kidney failure, unspecified; Z79.899 Other long term (current) drug therapy; Z91.09 Other allergy status, other than to drugs and biological substances
CPT/HCPCS: 36415; 36430; 71046; 71250; 74176; 80048; 80053; 83690; 83880; 84484; 85025; 85027; 85610; 85730; 86850; 86900; 86901; 86920; 87040; 93005; 94640; 96361; 96365; 96375; 99285; A9270; C9803; G0379; J0131; J0456; J0696; J2405; J7030; J7120; P9016; U0003; U0005

== ENCOUNTER 2021-12-03 17:41 | Emergency (ER) | payer OTHER, SELFPAY ==
--- NOTE | ~2021-12-03 | XR_ITS ---
EXAM: XR ribs BI 3V w CXR 2V HISTORY: PAIN TO LT SIDE, FALL X 3 WEEKS, PAIN WORSE YESTERDAY COMPARISON: 09/24/2021 FINDINGS: Small left pleural effusion. Normal cardiomediastinal silhouette. Cholecystectomy clips. M ildly displaced fracture of the left sixth posterior lateral and seventh through 11th lateral ribs. IMPRESSION: Multiple mildly displaced left sixth through 11th rib fractures. Reviewed, dictated and finalized at location K.
[2021-12-03 17:45] VITALS: BP 123/54; PULSE 92; RESP 18; TEMP 36.6; O2SAT 93
--- NOTE | 2021-12-03 18:34 | PC.NURSE ---
Refusing to have xrays done from lobby. Wants to wait until she sees a doctor because she feels she needs a CT scan.
[2021-12-03 19:27] VITALS: BP 132/76; PULSE 90; RESP 18; O2SAT 95
--- NOTE | 2021-12-03 19:39 | ED.FALL ---
HPI - Fall General Chief Complaint: Fall Stated Complaint: rib pain Time Seen by Provider: 12/03/21 19:23 History of Present Illness HPI Narrative: pt comes in with left rib pain says 3 weeks ago fell going down her stairs fell onto left chest h/o surgery dr soha delcid after fluid left lung last year and rib fx. says pain and went to [facility] yesterday told xray neg. pt says popping sensation today no other new f/uri/cp/neuro chagnes or new injury Related Data Home Medications Medication Instructions Recorded Confirmed albuterol sulfate 2 puff INHALATION PRN PRN 09/14/21 09/24/21 atenolol 50 mg PO DAILY 09/14/21 09/24/21 fluticasone propion-salmeterol 1 inh INHALATION BID PRN 09/14/21 09/24/21 [Wixela Inhub] montelukast 10 mg PO DAILY PRN 09/14/21 09/24/21 naproxen 500 mg PO PRN 09/14/21 09/24/21 prazosin 1 mg PO HS 09/14/21 09/24/21 venlafaxine 75 mg PO DAILY 09/14/21 09/24/21 venlafaxine 150 mg PO HS 09/14/21 09/24/21 Allergies Allergy/AdvReac Type Severity Reaction Status Date / Time latex AdvReac Mild Rash Verified 09/14/21 05:50 ciprofloxacin [From Cipro] AdvReac Rash Verified 09/24/21 06:29 codeine AdvReac Abdominal Verified 09/13/21 22:07 Pain Sulfa (Sulfonamide AdvReac Abdominal Verified 09/13/21 22:06 Antibiotics) Pain Review of Systems Review of Systems: CONSTITUTIONAL: Denies fever, chills, or sweats. EYES: Denies visual changes, redness, or discharge. ENT: Denies rhinorrhea, congestion, sore throat, or otalgia. CARDIOVASCULAR: Denies chest pain, palpitations, or edema. RESPIRATORY: Denies cough or dyspnea. GASTROINTESTINAL: Denies abdominal pain, nausea, vomiting, or diarrhea. GENITOURINARY: Denies dysuria or hematuria. SKIN: Denies rash or itching. MUSCULOSKELETAL: Denies back pain, joint pain, or myalgia. has left rib pain/popping NEUROLOGIC: Denies headache, numbness, or weakness. PSYCHIATRIC: Denies anxiety or depression. [facility] Past Medical History Medical History Allergies Asthma Hypertension PTSD (post-traumatic stress disorder) Tobacco abuse disorder Surgical History Surgical History History of cholecystectomy History of shoulder surgery Family History Family History (Updated 09/24/21 @ 06:50 by Ingrid Fermin RN) Father Liver failure Mother Rheumatic fever Social History Social History Smoking packs per day: 0.75 Smoking cigarettes per day: 15.0 Years smoked: 35 Smoking pack-years: 26.25 Smoking status: Current some day smoker Tobacco type: cigarettes Second hand tobacco smoke exposure: No Alcohol intake: current Substance use: never Substance use type: does not use Spiritual care concerns: No Exam Narrative: APPEARANCE: Well appearing, no pain in distress, well-nourished. Head normocephalic atraumtaic. EYES: PERRLA/EOMI, conjunctivae very clear. NOSE: Normal no drainage EARS:TMS clear Justo Merchant, with good light reflex. THROAT: Pharynx clear, no exudate. NECK: Supple. No adenopathy, no masses. RESPIRATORY: Airway patent, repsirations nonlabored. Clear to auscultation bilaterally, no rales, rhonchi, wheezing. tend left ribs no crepitus or bruising CARDIOVASCULAR: Regular rate and rhythm without murmurs rubs or gallops. ABDOMINAL: Soft, nontender, nondistended, no hepatosplenomegally MUSCULOSKELETAl: Moves all extremities. Strenght/ROM intact, No edema, No calf tenderness. NEURO: Alert. Cranial nerves II through XII intact. Good gait. Good coordination SKIN:: Warm, dry. Normal Color PSYCHIATRIC: Normal affect/mood, normal interaction with parents. Course Course Emergency Course: pt says trying to get f/u again with dr soha simmons with plan for norco-has taken fine in past and outpt f/u has family that lives wiht her and colace to soften stools and home pt also states had 3 r
[2021-12-03 20:01] VITALS: BP 146/87; PULSE 84; RESP 16; O2SAT 97
[2021-12-03] MEDS: HYDROcodone/acetaminophen (*CRX) 5-325 MG TABLET 1 TAB PO (20:02)
[2021-12-03 20:12] VITALS: BP 144/78; PULSE 82; RESP 18; O2SAT 100
== END 2021-12-03 20:15 | disposition home or self-care (01) ==
PROVIDERS: Emergency Provider Emergency Medicine; PCP Internal Medicine
DX: S22.42XA Multiple fractures of ribs, left side, initial encounter for closed fracture (principal); J45.909 Unspecified asthma, uncomplicated; I10 Essential (primary) hypertension; F43.10 Post-traumatic stress disorder, unspecified; F17.210 Nicotine dependence, cigarettes, uncomplicated; W10.9XXA Fall (on) (from) unspecified stairs and steps, initial encounter
CPT/HCPCS: 71046; 71110; 99283; A9270

== ENCOUNTER 2023-08-26 17:56 | Emergency (ER) | payer OTHER, SELFPAY ==
--- NOTE | ~2023-08-26 | XR_ITS ---
EXAMINATION: XR ribs LT 2V w CXR 2V Exam Date/Time: 08/26/2023 19:10 PEER EDUCATOR HISTORY: left rib pain after fall. hx of rib fx x 2 yrs Comparison: 12/03/2021. RESULT: Lines, tubes, and devices: Cholecystectomy clips. Lungs and pleura: Chronic left pleural blunting, otherwise clear. Cardiothymic silhouette: Stable. Other: No acute osseous or upper abdominal finding. Nonunited chronic left lateral sixth rib fractur e. Healed right lateral 7th through 11th left rib fractures. IMPRESSION: No acute cardiopulmonary process. No acute rib fracture detected. Multiple chronic left-sided rib fra ctures including a nonunited appearing left lateral sixth rib fracture. Reviewed, dictated and finalized at location K. EDUCATOR IMPRESSION: No acute cardiopulmonary process. No acute rib fracture detected. Multiple inclusion special educator octavio left-sided rib fractures including a nonunited appearing left lateral sixth rib fracture.
[2023-08-26 17:58] VITALS: BP 150/106; PULSE 96; RESP 18; TEMP 36.6; O2SAT 100
--- NOTE | 2023-08-26 19:13 | PC.NURSE ---
Assumed care of pt from LILIANA Blackmon and LILIANA Philippe at this time.
--- NOTE | 2023-08-26 19:14 | PC.NURSE ---
Pt to radiology at this time.
--- NOTE | 2023-08-26 20:05 | ED.FALL ---
HPI - Fall General Chief Complaint: Fall Stated Complaint: L RIB PAIN,KNOT IN AREA Time Seen by Provider: 08/26/23 18:08 History of Present Illness HPI Narrative: Patient is a 53-year-old female presenting with left rib pain. Patient states that she has broken ribs on the left side before. Last night her cat was kneading on her left ribs and she felt a pop. States that she has now has pain over her left lower ribs and she is concerned that there is a bone floating around. Denies pain elsewhere. No vomiting. No leg swelling. No further injuries. Related Data Home Medications Medication Instructions Recorded Confirmed albuterol sulfate 90 mcg/actuation 2 puff inhalation PRN PRN 09/14/21 09/24/21 aerosol inhaler Shortness Of Breath Or Wheezing atenolol 50 mg tablet 50 mg PO DAILY 09/14/21 09/24/21 fluticasone 500 mcg-salmeterol 50 1 inh inhalation BID PRN Shortness 09/14/21 09/24/21 mcg/dose blistr powdr for Of Breath inhalation (Wixela Inhub) montelukast 10 mg tablet 10 mg PO DAILY PRN Shortness Of 09/14/21 09/24/21 Breath naproxen 500 mg tablet 500 mg PO PRN pain 09/14/21 09/24/21 prazosin 1 mg capsule 1 mg PO HS 09/14/21 09/24/21 venlafaxine 150 mg 150 mg PO HS 09/14/21 09/24/21 capsule,extended release 24 hr venlafaxine 75 mg capsule,extended 75 mg PO DAILY 09/14/21 09/24/21 release 24 hr Allergies Allergy/AdvReac Type Severity Reaction Status Date / Time latex AdvReac Mild Rash Verified 08/26/23 18:14 ciprofloxacin [From Cipro] AdvReac Rash Verified 08/26/23 18:14 codeine AdvReac Abdominal Verified 08/26/23 18:14 Pain Sulfa (Sulfonamide AdvReac Abdominal Verified 08/26/23 18:14 Antibiotics) Pain Review of Systems Review of Systems: All systems reviewed & are unremarkable except as noted in HPI and below PMFSH Past Medical History Medical History Allergies Asthma Hypertension PTSD (post-traumatic stress disorder) Tobacco abuse disorder Surgical History Surgical History History of cholecystectomy History of shoulder surgery Family History Family History Father Liver failure Mother Rheumatic fever Social History Social History Smoking packs per day: 0.75 Smoking cigarettes per day: 15.0 Years smoked: 35 Smoking pack-years: 26.25 Smoking status: Current some day smoker Tobacco type: cigarettes Second hand tobacco smoke exposure: No Alcohol intake: current Substance use: never Substance use type: does not use Spiritual care concerns: No Exam Narrative: GENERAL: Well-appearing, well-nourished, and in no acute distress. HEAD: Normocephalic, atraumatic. EYES: PERRLA and EOMI. ENT: grossly unremarkable NECK: Supple. CHEST: Clear to auscultation. No respiratory distress. tenderness over left lower ribs HEART: Regular rate and rhythm ABDOMEN: Soft, nontender, nondistended EXTREMITIES: No edema. SKIN: Warm, dry, no rash. NEURO: Alert and oriented x3. PSYCH: Normal mood and affect. Course Vital Signs Vital signs: Vital Signs Temperature 98 F 08/26/23 17:58 Pulse Rate 96 08/26/23 17:58 Respiratory Rate 18 08/26/23 17:58 Blood Pressure 150/106 H 08/26/23 17:58 Pulse Oximetry 100 08/26/23 17:58 Oxygen Delivery Room Air 08/26/23 17:58 Temperature 98 F 08/26/23 17:58 Pulse Rate 97 08/26/23 20:21 Respiratory Rate 17 08/26/23 20:21 Blood Pressure 148/94 H 08/26/23 20:21 Pulse Oximetry 99 08/26/23 20:21 Oxygen Delivery Room Air 08/26/23 17:58 MDM - Fall MDM Narrative Medical decision making narrative: 53-year-old female presenting with left-sided lower rib pain. Vitals are stable. Exam remarkable for the above. X-ray of chest and left ribs show no ac
[2023-08-26 20:21] VITALS: BP 148/94; PULSE 97; RESP 17; O2SAT 99
== END 2023-08-26 20:23 | disposition home or self-care (01) ==
PROVIDERS: Emergency Provider Emergency Medicine; PCP Internal Medicine
DX: R07.81 Pleurodynia (principal); J45.909 Unspecified asthma, uncomplicated; I10 Essential (primary) hypertension; F43.10 Post-traumatic stress disorder, unspecified; F17.210 Nicotine dependence, cigarettes, uncomplicated; Z90.49 Acquired absence of other specified parts of digestive tract
CPT/HCPCS: 71046; 71100; 99283